=== PATIENT | female | born 1930 | race Caucasian/White ===

== ENCOUNTER 2017-04-16 19:26 | Emergency (ER) | payer MEDICARE, OTHER ==
[~2017-04-16] VITALS: Ht 142.2 cm; Wt 73.0 kg
[2017-04-16 19:28] VITALS: Ht 142.2 cm; Wt 73.0 kg
[2017-04-16] MEDS ORDERED: ASPIRIN 325 MG TAB PO STA (20:14)
[2017-04-16] MEDS ORDERED: OMEP20CA16 PO (20:19)
[2017-04-16] MEDS ORDERED: ASPI-664 PO (20:20)
[2017-04-16] MEDS ORDERED: METO-429 PO (20:20)
[2017-04-16 20:42] LABS: BASOPHIL # 0.1 10^3/ul (0.0-0.1); BASOPHILS % 0.6 % (0.0-2.0); EOSINOPHILS # 0.3 10^3/ul (0.0-0.5); EOSINOPHILS % 3.2 % (0.0-7.0); HEMATOCRIT 36.8 % (37.0-47.0); HEMOGLOBIN 12.4 g/dl (12.0-16.0); LYMPHOCYTES # 1.6 10^3/ul (0.8-2.9); LYMPHOCYTES % 18.8 % (15.0-51.0); MEAN CORPUSCULAR HEMOGLOBIN 29.7 pg (29.0-33.0); MEAN CORPUSCULAR HGB CONC 33.7 g/dl (32.0-37.0); MEAN CORPUSCULAR VOLUME 88.2 fl (82.0-101.0); MEAN PLATELET VOLUME 9.6 fl (7.4-10.4); MONOCYTE # 0.8 10^3/ul (0.3-0.9); NEUTROPHIL # 5.7 10^3/ul (1.6-7.5); PLATELET COUNT 301 10^3/UL (140-415); RED BLOOD COUNT 4.17 10^6/ul (4.20-5.40); RED CELL DISTRIBUTION WIDTH 13.3 % (11.5-14.5); WHITE BLOOD COUNT 8.3 10^3/ul (4.8-10.8)
[2017-04-16 20:45] LABS: INR 1.01; PROTIME 13.3 Sec (12.2-14.2)
[2017-04-16 20:50] LABS: ANION GAP 11 (8-16); BLOOD UREA NITROGEN 53 mg/dl (7-20); CARBON DIOXIDE 30 mmol/L (21-31); CHLORIDE 94 mmol/L (97-110); CREATININE 1.57 mg/dl (0.44-1.00); GLUCOSE 119 mg/dl (70-220); SODIUM 131 mmol/L (135-144)
--- NOTE | 2017-04-16 21:02 | RADRPT ---
PROCEDURE: Chest x-ray CLINICAL INDICATION: Chest pain TECHNIQUE: Chest single view COMPARISON: None FINDINGS: There is mild cardiomegaly and moderate sclerotic aortic calcification. The bony vessels normal in c aliber. Chronic interstitial changes. No acute infiltrates are seen. Costophrenic angles are sharp. There is moderate degenerative change of bilateral glenohumeral joints. Bones are osteopenic. IMPRESSION: 1. Mild cardiomegaly and moderate atherosclerotic aortic calcification. 2. Chronic interstitial lung changes and old granulomatous disease. 3. No acute infiltrates. 4. Osteopenia and degenerative change of both shoulders RPTAT: HH .Rene Arenas MD, MD Date Time Electronically viewed and signed by .Rene Arenas MD, on 04/16/2017 21:02 .W/
[2017-04-16 21:10] LABS: TROPONIN-I < 0.012 ng/ml (0.00-0.12)
[2017-04-16 22:05] VITALS: TEMP 98.5
[2017-04-16] MEDS ORDERED: SOD CHLORIDE 0.9% 1,000 ML IV ONE (23:30)
[2017-04-17] MEDS ORDERED: FAMOTIDINE 20 MG TAB PO ONE
[2017-04-17] MEDS ORDERED: LIDOCAINE/MYLANTA 40 ML BTL PO ONE
[2017-04-17 00:06] LABS: ALBUMIN 3.4 g/dl (3.3-4.9); TOTAL PROTEIN 5.8 g/dl (6.1-8.1)
[2017-04-17 00:12] LABS: ADD UMIC NO; UR ASCORBIC ACID NEGATIVE (NEGATIVE); UR BILIRUBIN (Dip) NEGATIVE (NEGATIVE); UR BLOOD (Dip) NEGATIVE (NEGATIVE); UR CLARITY CLEAR (CLEAR); UR COLOR STRAW (YELLOW); UR GLUCOSE (Dip) NEGATIVE (NEGATIVE); UR KETONES (Dip) NEGATIVE (NEGATIVE); UR LEUKOCYTE ESTERASE (Dip) NEGATIVE Leu/ul (NEGATIVE); UR NITRITE (Dip) NEGATIVE (NEGATIVE); UR SPECIFIC GRAVITY (Dip) 1.011 (1.003-1.030); UR TOTAL PROTEIN (Dip) NEGATIVE (NEGATIVE); UR UROBILINOGEN (Dip) NEGATIVE (NEGATIVE)
--- NOTE | 2017-04-17 00:12 | ERA ---
ER Documentation Chief Complaint Date/Time DATE: 04/17/17 TIME: 00:10 Chief Complaint cc/o abd pain x 2 days. (+) N/V. HPI This is an 87-year-old female with a history of hypertension, chronic kidney disease, and chronic gastritis who is presenting with burning epigastric pain, nausea and vomiting that began last night and continued today. The patient had well cooked chicken last night. She started her epigastric pain shortly after that. She was nauseated last night, but she did not vomit until this morning. Her vomit was nonbilious and nonbloody. She describes it as water. The patient 's symptoms significantly improved while in the waiting room, but she does still have epigastric discomfort. She denies any diarrhea. The patient does not endorse any other symptoms. She has no headache or vision changes. She is not currently nauseated. She has no chest pain or trouble breathing. She has no lightheadedness or dizziness. She has not been diaphoretic. She only has mild epigastric discomfort at this time. She has no other abdominal pain. She has had no changes to bowel movements or urination. She has not been incontinent of urine or stool. She has not had any blood in her urine or stool. She does not endorse any focal deficits. The patient takes metoprolol for her blood pressure. She missed her dose this afternoon. ROS All systems reviewed and are negative except as per history of present illness. Medications Home Meds Reported Medications Aspirin* (Aspirin* EC) 81 Mg Tablet., 81 MG PO DAILY, TAB 04/16/17 Metoprolol Tartrate* (Lopressor*) 50 Mg Tab, 50 MG PO BID, #60 TAB 04/16/17 Omeprazole* (Omeprazole*) 20 Mg Capsule.dr, 20 MG PO DAILY, #30 CAP 04/16/17 Allergies Allergies: Coded Allergies: No Known Allergy (Unverified , 04/16/17) PMhx/Soc History of Surgery: Yes (hysterectomy 2005, L knee replacement, r facial tumor removal) Anesthesia Reaction: No Hx Neurological Disorder: No Hx Respiratory Disorders: No Hx Cardiac Disorders: Yes (htn) Hx Psychiatric Problems: No Hx Miscellaneous Medical Probl: Yes (gastritis, chronic kidney disease) Hx Alcohol Use: No Hx Substance Use: No Hx Tobacco Use: No Smoking Status: Never smoker FmHx Family History: No diabetes Physical Exam Vitals Vital Signs Date Time Temp Pulse Resp B/P Pulse Ox O2 Delivery O2 Flow Rate FiO2 04/17/17 00:50 57 18 209/88 98 04/16/17 22:55 58 222/92 04/16/17 22:05 98.5 60 18 213/93 97 Room Air 04/16/17 19:28 98.0 57 18 179/74 97 Physical Exam Const: NAD, Well developed, Well nourished Head: Atraumatic Eyes: Normal Conjunctiva ENT: Normal External Ears, Nose and Mouth. Neck: Full range of motion..~ No meningismus. Resp: Clear to auscultation bilaterally Cardio: Regular rhythm, mild bradycardia, no murmurs Abd: Soft, epigastric tenderness, non distended. Normal bowel sounds Skin: No petechiae or rashes Back: No midline or flank tenderness Ext: No cyanosis, or edema Neur: Awake and alert Psych: Normal Mood and Affect Result Diagram: 04/16/17200604/16/172006 Results 24 hrs Laboratory Tests Test 04/16/17 20:07 04/16/17 23:14 White Blood Count 8.310^3/ul Red Blood Count 4.1710^6/ul Hemoglobin 12.4g/dl Hematocrit 36.8% Mean Corpuscular Volume 88.2fl Mean Corpuscular Hemoglobin 29.7pg Mean Corpuscular Hemoglobin Concent 33.7g/dl Red Cell Distribution Width 13.3% Platelet Count 23861^3/UL Mean Platelet Volume 9.6fl Neutrophils % 68.0% Lymphocytes % 18.8% Monocytes % 9.0% Eosinophils % 3.2% Basophils % 0.6% Nucleated Red Blood Cells % 0.0/100WBC Neutrophils # 5.710^3/ul Lymphocytes # 1.610^3/ul Monocytes # 0.810^3/ul Eosinophils # 0.310^3/ul Basophils # 0.110^3/ul Nucleated Red Blood Cells # 0.010^3/ul Prothrombin Time 13.3Sec Prothrombin Time Ratio 1.0 INR International Normalized Ratio 1.01 Activated Partial Thromboplast Time 28.0Sec Sodium Level 131mmol/L Potassium Level 4.0mmol/L Chloride Level 94mmol/L Carbon Dioxide Level 30mmol/L Anion Gap 11 Blood Urea Nitrogen 53mg/dl Creatinine 1.57mg/dl Glucose Level 119mg/dl Calcium Level 8.0mg/dl Total Bilirubin 0.0mg/dl Direct Bilirubin 0.00mg/dl Indirect Bilirubin 0.0mg/dl Aspartate Amino Transf (AST/SGOT) 29IU/L Alanine Aminotransferase (ALT/SGPT) 26IU/L Alkaline Phosphatase 89IU/L Troponin I < 0.012ng/ml Total Protein 5.8g/dl Albumin 3.4g/dl Lipase 245U/L Urine Color STRAW Urine Clarity CLEAR Urine pH 6.0 Urine Specific [place] 1.011 Urine Ketones NEGATIVEmg/dL Urine Nitrite NEGATIVEmg/dL Urine Bilirubin NEGATIVEmg/dL Urine Urobilinogen NEGATIVEmg/dL Urine Leukocyte Esterase NEGATIVELeu/ul Urine Hemoglobin NEGATIVEmg/dL Urine Glucose NEGATIVEmg/dL Urine Total Protein NEGATIVEmg/dl Current Medications Medications (Trade) Dose Ordered Sig/Deena Route PRN Reason Start Time Stop Time Status Last Admin Dose Admin Aspirin 325 mg 325 mg ONCE STAT PO 04/16/17 20:14 04/16/17 20:15 DC 04/16/17 20:36 Sodium Chloride (NS) 1,000 ml @ 1,000 mls/hr Q1H ONCE IV 04/16/17 23:30 04/17/17 00:29 DC 04/16/17 23:47 Miscellaneous Medication (Gi Cocktail (2)) 40 ml ONCE ONCE PO 04/17/17 00:00 04/17/17 00:01 DC 04/16/17 23:52 Famotidine (Pepcid) 20 mg ONCE ONCE PO 04/17/17 00:00 04/17/17 00:01 DC 04/16/17 23:52 Procedures/[facility] Patient's presentation warrants further investigation. She endorses epigastric symptoms of pain with nausea and vomiting. The patient has a history of gastritis and GERD, and this is certainly possible today. I will complete a cardiac workup as well as this could be a presentation of atypical acute coronary syndrome. LABS The patient's blood work was obtained and reviewed. The patient seemed shows no leukocytosis or left shift. The patient is afebrile, and I do not suspect a systemic infection. The patient is not anemic today. The patient's platelet count is unremarkable. The patient's CMP shows mild hyponatremia and hypochloremia. The patient will be given IV fluids in the emergency department. The patient's BUN and creatinine are both elevated. The patient does not have previous blood work in our system to compare this to. However, in speaking with the patient and her daughter, the patient does have known chronic kidney disease, and this creatinine may be her baseline. The patient has not had issues with urination. She has no CVA tenderness. This may be followed up as an outpatient. The patient has normal hepatic function testing. Her troponin is negative. Her urinalysis shows no signs of hematuria or infection. EKG EKG read by me: Rate/Rhythm: Regular rhythm, sinus bradycardia at a rate of 59 (pt on metoprolol ) Intervals: Normal Allen: Normal TWI V5-6 Impression: Nonspecific changes without evidence of acute ischemia IMAGING CXR IMPRESSION: 1. Mild cardiomegaly and moderate atherosclerotic aortic calcification. 2. Chronic interstitial lung changes and old granulomatous disease. 3. No acute infiltrates. 4. Osteopenia and degenerative change of both shoulders Electronically viewed and signed by .Rene Arenas MD, MD on 04/16/2017 21:02 TREATMENT/DISPOSITION The patient's workup shows nothing acute that we are aware of. She does have an elevated creatinine that needs to be followed up as an outpatient. The patient did have epigastric discomfort with nausea and vomiting, which improved after treatment for gastritis. The patient's cardiac workup at this time is negative. The patient does not endorse chest pain. My suspicion for a cardiac etiology is low. Her troponin is negative. The patient's EKG shows nonspecific changes but no acute changes concerning for STEMI or an acute coronary syndrome. The patient did have an elevated blood pressure in the emergency department. She does not have any findings consistent with hypertensive urgency or emergency. The patient's elevated creatinine is likely associated with her high blood pressure. The patient has known kidney disease, but she does require further evaluation by her primary care doctor to get her blood pressure under control. The patient did take her metoprolol while in the emergency department after she realized that she had forgotten it this afternoon. She did reportedly take it this morning, but she is also nauseated and vomited twice , so it is unclear if she truly received that dose. I do not intend to adjust her medications at this time, but her primary care physician does need to reevaluate it as an outpatient. The patient was mildly bradycardic in the emergency department in the high 50s to low 60s. This is likely related to her eta joaquin use. At this time, the patient stable for discharge. She needs to follow-up with her primary care physician in 2-3 days for reevaluation. She will be given precautions with which to return to the emergency department. Departure Diagnosis: Primary Impression: Epigastric abdominal pain Additional Impressions: Hypertension Qualified Code: I10 - Hypertension, unspecified type CKD (chronic kidney disease) Qualified Code: N18.9 - Chronic kidney disease, unspecified CKD stage Condition: JORGE Servin MD Apr 17, 2017 00:12
[2017-04-17 00:50] VITALS: BP 209/88; PULSE 57; RESP 18
== END 2017-04-17 00:50 | disposition home or self-care (01) ==
LOC: E/R 19:26
DX: R10.13 Epigastric pain (principal); I12.9 Hypertensive chronic kidney disease with stage 1 through stage 4 chronic kidney disease, or unspecified chronic kidney disease; N18.9 Chronic kidney disease, unspecified; Z79.82 Long term (current) use of aspirin
CPT/HCPCS: 71010; 80048; 80076; 81003; 83690; 84484; 85025; 85610; 85730; 93005; 99285; J7030

== ENCOUNTER 2017-09-03 23:10 | Inpatient (IN) | END 2017-09-17 16:03 | disposition home health service (06) | DRG 291 ==

== ENCOUNTER 2017-10-08 07:49 | Inpatient (IN) | END 2017-10-13 19:29 | disposition home health service (06) | DRG 291 ==

== ENCOUNTER 2017-11-02 16:29 | Inpatient (IN) | END 2017-11-06 19:35 | disposition home or self-care (01) | DRG 291 ==

== ENCOUNTER 2017-11-20 14:07 | Inpatient (IN) | END 2017-11-23 20:15 | disposition home health service (06) | DRG 291 ==

== ENCOUNTER 2018-03-14 13:17 | Emergency (ER) | END 2018-03-14 19:36 | disposition home or self-care (01) ==